=== PATIENT | female | born 1945 | race Caucasian/White ===

== ENCOUNTER → 2018-11-04 | Outpatient (CLI) | payer MEDICARE ==
[~2018-11-04] MED LIST: CONTRAST GIVEN. MC PRN; IOHEXOL 240 MG/ML 50ML VIAL. PO ONE; IOHEXOL 300 MG/ML 100ML VIAL. IV ONE
--- NOTE | 2018-11-04 15:56 | RAD ---
EXAM: CT Chest, Abdomen and Pelvis with IV contrast CLINICAL HISTORY: F/U ASCENDING COLON CANCER COMPARISON: None. TECHNIQUE: Helical CT of the chest, abdomen and pelvis was performed following the administration of intravenous contrast. Oral contrast was administered. Axial, coronal and sagittal reformatted images were generated. ---PQRS compliance statement - One or more of the following individualized dose reduction techniques were utilized for this study: 1. Automated exposure control 2. Adjustment of the mA and/or kV according to patient size 3. Use of iterative reconstruction technique--- FINDINGS: Chest: A 3 mm nodular opacity seen in the right major fissure (series 2 image 22). Otherwise no suspicious lung nodule or mass is seen. Dependent groundglass opacities, likely atelectasis and/or scarring. Heart is not enlarged. Coronary artery calcifications are seen. No pleural effusion or pneumothorax. A few prominent mediastinal and hilar lymph nodes are seen, no lymphadenopathy by size criteria. Asymmetrically prominent and borderline enlarged left axillary lymph nodes are seen. Left chest Port-A-Cath is seen with tip terminating at the mid left brachiocephalic vein distal to which is significant focal narrowing of the left brachiocephalic vein. Abdomen and Pelvis: Diffuse low-attenuation of the liver may be seen with hepatic steatosis. Liver is not enlarged measuring 16 cm in length. No focal liver lesion. Gallbladder is normal. No biliary ductal dilatation. Spleen is unremarkable. Adrenal glands and pancreas are grossly unremarkable. Symmetric nephrograms. No focal renal lesion. No hydronephrosis. No hydroureter. Bladder is unremarkable. Postoperative changes of partial right colonic resection are seen with associated anastomotic suture line. Moderate to large volume colonic stool content is seen throughout the colon. Colonic diverticulosis without evidence of acute diverticulitis. No definite abdominal or pelvic lymphadenopathy is seen. No abdominal pelvic ascites. Other scarring calcifications of aorta and main branches is seen, more dense within the infrarenal aorta. Bones: Multilevel degenerative changes of the spine are seen. Visualized osseous structures are otherwise unremarkable. IMPRESSION: 1. Postoperative changes of partial right colectomy, without definite evidence for local recurrence or metastatic disease. 2. No abdominal or pelvic lymphadenopathy. 3. Nonspecific prominent and borderline enlarged left axillary lymph nodes are seen. This can be correlated with mammography and clinical examination if not recently performed. 4. Hepatic hypoattenuation may be seen with hepatic steatosis. Electronically signed by: Gage Crockett MD (11/04/2018 3:52 PM) [facility]
== END | disposition home or self-care (01) ==
LOC: CT 08:00
PROVIDERS: ATTEND Internal Medicine Hematology & Oncology
DX: C18.2 Malignant neoplasm of ascending colon (principal); R91.8 Other nonspecific abnormal finding of lung field; I25.10 Atherosclerotic heart disease of native coronary artery without angina pectoris; K57.30 Diverticulosis of large intestine without perforation or abscess without bleeding; Z88.0 Allergy status to penicillin; Z98.891 History of uterine scar from previous surgery
CPT/HCPCS: 71260; 74177; Q9966; Q9967

== ENCOUNTER → 2019-11-14 | Outpatient (CLI) | payer MEDICARE ==
[~2019-11-14] MED LIST changes: -CONTRAST GIVEN. MC PRN
--- NOTE | 2019-11-14 11:48 | RAD ---
CT CHEST ABD PELVIS W/CONTRAST Clinical Indication: Colon cancer COMPARISON: 11/04/2018 TECHNIQUE: Multiple contiguous axial images were obtained throughout the chest, abdomen, and pelvis with the use of IV contrast. Axial images were reformatted into coronal and sagittal planes. 75 mL Omnipaque 350 was administered. One or more of the following dose reduction techniques were utilized: Automated exposure control (AEC), Adjustment of mA and/or kV according to patient size, Use of iterative reconstruction technique such as ASiR, CT scan done according to ALARA and image gently/image wisely. Findings: The thyroid is symmetric. Enlargement of the previously described conspicuous left axillary and subpectoral lymph nodes, for example left axillary lymph node measuring 1.1 x 1.8 cm previously measured 0.9 x 1.2 cm (series 2 image 14). No mediastinal or hilar lymphadenopathy. The thoracic aorta diameter is normal. The cardiac size is normal. Coronary artery atherosclerotic disease. There is no pericardial effusion. The central airways are patent. No pulmonary mass or consolidation. No pleural effusion is observed. There is no pneumothorax. The liver, gallbladder, spleen, pancreas, and adrenal glands are unremarkable. The kidneys are unremarkable. There is no significant mesenteric or retroperitoneal adenopathy identified. There is no evidence of free intraperitoneal fluid or pneumoperitoneum. Moderate aortoiliac atherosclerotic disease. Right hemicolectomy. Indeterminate density (28 Hounsfield units) within the colon at the anastomotic site measuring 3.8 x 3.0 cm. Mild colonic diverticulosis. The bladder is decompressed and poorly evaluated. Hysterectomy. No significant iliac or inguinal adenopathy is identified. No acute osseous abnormality. IMPRESSION: 1. Right hemicolectomy with a new indeterminate density within the colon at the enterocolic anastomosis measuring up to 3.8 cm, for which recurrent disease is not excluded. Direct visualization is recommended. 2. Enlarging left axillary lymphadenopathy. Tissue sampling may be warranted, given history of malignancy. 3. No abdominal or mediastinal lymphadenopathy. Electronically signed by: Ryan Najera MD (11/14/2019 11:46 AM) [id number]
== END | disposition home or self-care (01) ==
LOC: CT 08:18
PROVIDERS: ATTEND Internal Medicine Hematology & Oncology
DX: C18.2 Malignant neoplasm of ascending colon (principal); I25.10 Atherosclerotic heart disease of native coronary artery without angina pectoris; K57.30 Diverticulosis of large intestine without perforation or abscess without bleeding; R59.0 Localized enlarged lymph nodes; Z88.0 Allergy status to penicillin; Z88.5 Allergy status to narcotic agent
CPT/HCPCS: 71260; 74177; Q9966; Q9967